=== PATIENT | male | born 1990 | race Caucasian/White ===

== ENCOUNTER 2021-04-02 06:57 | Emergency (ER) | payer OTHER ==
[2021-04-02 07:28] VITALS: BP 135/102; PULSE 73; TEMP 97.8; BMI 28.0
[2021-04-02] MEDS ORDERED: ALBUTEROL SO4 2.5/IPRATROPIUM 0.5 INH SOL 3 ML VIAL.NEB. NEB ONE ×3 (07:36→09:18)
[2021-04-02] MEDS ORDERED: predniSONE 20 MG TABLET (UD) PO ONE (07:47)
[2021-04-02] MEDS ORDERED: LIDOCAINE 5% TOPICAL PATCH TP ONE (08:02)
[2021-04-02] MEDS ORDERED: ACETAMINOPHEN 1000 MG/100 ML VIAL IVPB ONE (08:03)
[2021-04-02] MEDS ORDERED: predniSONE 20 MG TABLET (UD) ONE (08:09)
[2021-04-02] MEDS ORDERED: LIDOCAINE 5% TOPICAL PATCH ONE (08:09)
[2021-04-02] MEDS ORDERED: ACETAMINOPHEN INJECTION 100 ML IVPB ONE (08:09)
[2021-04-02 08:28] LABS: BASO % 0.5 % (0-2.0); EOS % 1.6 % (0-4.5); HEMATOCRIT 46.7 % (35.4-49); HEMOGLOBIN 16.1 GM/dL (11.7-16.9); LYMPH % 29.3 % (8-40); MCH 30.6 pg (25.7-33.7); MCHC 34.5 g/dl (32.0-35.9); MEAN CELL VOLUME 88.9 fl (80-96); MEAN PLT VOLUME 7.5 fl (7.5-11.1); MONO % 12.3 % (3.8-10.2); NEUT % 56.3 % (42.8-82.8); PLATELET COUNT 287 10^3/uL (134-434); RBC 5.25 M/mm3 (4.00-5.60); RDW 13.1 % (11.9-15.9); WHITE BLOOD COUNT 8.6 K/mm3 (4.0-10.0)
[2021-04-02 08:45] LABS: CHLORIDE 107 mmol/L (98-107); SODIUM 138 mmol/L (136-145)
[2021-04-02 08:48] LABS: ALBUMIN 3.5 g/dl (3.4-5.0); ANION GAP 3 MMOL/L (8-16); BLOOD UREA NITROGEN 12.6 mg/dL (7-18); CALCIUM 8.4 mg/dL (8.5-10.1); CO2 29 mmol/L (21-32); GLUCOSE,RANDOM 94 mg/dL (74-106)
[2021-04-02 08:50] LABS: CREATININE 0.8 mg/dL (0.55-1.3); SGOT/AST 29 U/L (15-37); SGPT/ALT 35 U/L (13-61)
[2021-04-02 08:53] LABS: ALK PHOS 89 U/L (45-117); BILIRUBIN,TOTAL 0.5 mg/dL (0.2-1); TOT PROT 6.9 g/dl (6.4-8.2)
[2021-04-02] MEDS: ALBUTEROL SO4 2.5/IPRATROPIUM 0.5 INH SOL 3 ML VIAL.NEB. NEB SCH ×2 (09:27→09:54)
[2021-04-02] MEDS ORDERED: LIDOCAINE PATCH REMOVAL MC ONE (20:30)
== END 2021-04-02 10:14 | disposition home or self-care (01) ==
LOC: JER 06:57
PROC: 3E0333Z Introduction of Anti-inflammatory into Peripheral Vein, Percutaneous Approach (ICD-10-PCS; principal; 2021-04-02)
PROC: 3E0F7GC Introduction of Other Therapeutic Substance into Respiratory Tract, Via Natural or Artificial Opening (ICD-10-PCS; 2021-04-02)
PROC: 3E0F7GC Introduction of Other Therapeutic Substance into Respiratory Tract, Via Natural or Artificial Opening (ICD-10-PCS; 2021-04-02)
DX: R06.2 Wheezing (principal); R07.89 Other chest pain
CPT/HCPCS: 36415; 71046-TC-FY; 80053; 82550; 82553; 84484; 85025; 93005; 93010; 99285-25; C9803; J0131; U0003; U0005

== ENCOUNTER 2022-01-06 09:44 | Inpatient (IN) | payer OTHER ==
[2022-01-06 10:32] VITALS: BMI 33.7
[2022-01-06] MEDS ORDERED: ACETAMINOPHEN 325 MG TABLET (FP) PO PRN ×2 (10:54)
[2022-01-06] MEDS ORDERED: BISMUTH SUBSALICYLATE 524 MG/30 ML PO PRN (10:54)
[2022-01-06] MEDS ORDERED: MAG HYDROX/AL HYDROX/SIMETH 30 ML UNIT-DOSE CUP PO PRN (10:54)
[2022-01-06] MEDS ORDERED: LOPERAMIDE HCL 2 MG CAPSULE PO PRN (10:54)
[2022-01-06] MEDS ORDERED: NICOTINE 10 MG CARTRIDGE (INHALER) IH PRN (10:54)
[2022-01-06] MEDS ORDERED: BENZOCAINE/MENTHOL (CHLORASEPTIC ) LOZENGE MM PRN (10:54)
[2022-01-06] MEDS ORDERED: ONDANSETRON *ODT* 4 MG TABLET SL PRN (10:54)
[2022-01-06] MEDS ORDERED: MAGNESIUM CITRATE 300 ML BOTTLE PO PRN (10:54)
[2022-01-06] MEDS ORDERED: IBUPROFEN 400 MG TABLET (FP) PO PRN (10:54)
[2022-01-06] MEDS ORDERED: IBUPROFEN 600 MG TABLET (FP) PO PRN (10:54)
[2022-01-06] MEDS ORDERED: MAGNESIUM HYDROX 2400MG/30ML ORAL SUSPENSION 30 ML CUP PO PRN (10:54)
[2022-01-06] MEDS ORDERED: DICYCLOMINE HCL 10 MG CAPSULE PO PRN (10:54)
[2022-01-06] MEDS: PRENATAL VITAMINS W/ FOLIC ACID TABLET (FP) PO SCH (11:40)
[2022-01-06] MEDS: hydrOXYzine PAMOATE 25 MG CAPSULE (FP) PO SCH ×3 (14:03→23:09)
[2022-01-06 15:52] LABS: CALCIUM 9.6 mg/dL (8.5-10.1)
[2022-01-06 15:54] LABS: ALBUMIN 4.3 g/dl (3.4-5.0); BLOOD UREA NITROGEN 12.9 mg/dL (7-18); HEMATOCRIT 46.4 % (35.4-49); HEMOGLOBIN 15.4 GM/dL (11.7-16.9); MCH 29.1 pg (25.7-33.7); MCHC 33.1 g/dl (32.0-35.9); MEAN CELL VOLUME 87.8 fl (80-96); PLATELET COUNT 306 10^3/uL (134-434); RBC 5.29 M/mm3 (4.00-5.60); RDW 15.1 % (11.9-15.9); WHITE BLOOD COUNT 8.7 K/mm3 (4.0-10.0)
[2022-01-06 15:56] LABS: CREATININE 1.2 mg/dL (0.55-1.3)
[2022-01-06] MEDS: METHOCARBAMOL 500 MG TABLET PO PRN (18:01)
[2022-01-06] MEDS ORDERED: MELATONIN 5 MG TABLETS PO SCH (22:00)
[2022-01-06] MEDS ORDERED: THIAMINE HCL 100 MG TABLET (FP) PO SCH (22:00)
[2022-01-07] MEDS: hydrOXYzine PAMOATE 25 MG CAPSULE (FP) PO SCH ×2 (05:50→10:30)
[2022-01-07] MEDS: METHOCARBAMOL 500 MG TABLET PO PRN (05:50)
[2022-01-07 09:33] VITALS: BP 125/77; PULSE 83; RESP 17; TEMP 96.9
[2022-01-07] MEDS: PRENATAL VITAMINS W/ FOLIC ACID TABLET (FP) PO SCH (10:30)
== END 2022-01-07 12:46 | disposition home or self-care (01) | DRG 775 ==
LOC: YASAS 09:44 → Y6N 11:14
PROVIDERS: ADMIT Allergy & Immunology; ATTEND Surgery
PROC: HZ2ZZZZ Detoxification Services for Substance Abuse Treatment (ICD-10-PCS; principal; 2022-01-06)
DX: F10.230 Alcohol dependence with withdrawal, uncomplicated (principal); F12.20 Cannabis dependence, uncomplicated; F41.8 Other specified anxiety disorders; R73.03 Prediabetes; Z87.891 Personal history of nicotine dependence; Z59.00 Homelessness unspecified
CPT/HCPCS: 36415; 80053; 85027; 86780; 87811; C9803-CS; Q0162; U0003; U0005